=== PATIENT | male | born 1945 | race Caucasian/White ===

== ENCOUNTER 2017-01-09 15:45 | Emergency (ER) | payer MEDICARE ==
--- NOTE | ~2017-01-09 | CT4 ---
[facility] A Service of [facility] & [facility] / [facility] RADIOLOGY TEXT RESULTS PATIENT: APOLLO VIRAMONTES LOCATION: [facility] : [birth year] UNIT #: [id number] AGE: [address]: Phil Guillen MD SEX: M ORDER DR: [id number] [facility] [address] [place], [place] [address] [id number] P MR#: [id number] Acc #: [id number] NAME: APOLLO VIRAMONTES : 1945 SEX: M STUDY DATE/TIME: 01/09/2017 17:31 UNIT: [facility] ROOM: STUDY DESCRIPTION: CT Abd and Pelv Wo Cont Attending Physician: Phil Guillen M.D. Ordering Physician: Phil Guillen M.D. Primary Care Physician: [facility], [facility], [facility]. MEDICAL IMAGING REPORT This report is preliminary unless electronic signature is present EXAM CT abdomen and pelvis 01/09 INDICATIONS Abdominal pain with nausea and vomiting that started today. TECHNIQUE Axial images were obtained through the abdomen and pelvis without contrast. Multiplanar reformats were obtained. This CT exam was performed with one or more of the following radiation dose reduction techniques: automatic exposure control, adjustment of mA and/or kV according to patient size, and iterative reconstruction. COMPARISON STUDIES Comparison made with 01/23/2016. FINDINGS ABDOMEN: The findings have already been discussed directly with Dr. Guillen in emergency room prior to this dictation. The lung bases are clear. The patient has a infrarenal abdominal aortic aneurysm. It now measures up to 5.7 cm where it was previously 5.2 cm. It is now ruptured and is surrounded by blood products. The aneurysm covers a craniocaudal length of about 8.7 cm. Fatty infiltration of the liver is present. There is a cyst in the lower pole of the right kidney. There is also a cyst in the lateral cortex of the left kidney. No renal or ureteral stones are seen. There is no hydronephrosis. The unopacified GI tract is grossly normal. PELVIS: The left common iliac artery is dilated to about 1.6 cm. There is diffuse atherosclerotic disease. The urinary bladder is normal. Trace amount of dependent free fluid is present. The unopacified GI tract is grossly normal. Patient is status post ORIF of the left hip. There is STS. [facility] A Service of [facility] RADIOLOGY TEXT RESULTS PATIENT: PAOLLO VIRAMONTES LOCATION: 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 IMPRESSION 1. Ruptured or leaking infrarenal abdominal aortic aneurysm. It is surrounded by hemorrhage. It now measures up to 5.7 cm where it previously measured about 5.2 cm in 2016. 2. 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 3. Extensive atherosclerotic disease. 4. Fatty liver. 5. Trace dependent free fluid in the pelvis. STAT * RESULT Dictated by... Sivakumar Osorio Jr., M.D. THIS IS AN ELECTRONICALLY VERIFIED REPORT Sivakumar Osorio Jr., M.D. at 01/09/2017 10:33 PM RAVINDRA/martin TD: 01/09/2017 18:08 JOB #: [id number] MEDICAL IMAGING REPORT Page 1 of 1 COPY
--- NOTE | ~2017-01-09 | CT14 ---
[facility] A Service of [facility] & [facility] RADIOLOGY TEXT RESULTS PATIENT: APOLLO VIRAMONTES LOCATION: [facility] : 47 UNIT #: [id number] AGE: [address]: Phil Guillen MD SEX: M ORDER DR: [id number] [facility] [address] [place], [place] [address] [id number] E MR#: [id number] Acc #: [id number] NAME: APOLLO VIRAMONTES. : 1945 SEX: M STUDY DATE/TIME: 01/09/2017 18:31 UNIT: [facility] ROOM: STUDY DESCRIPTION: CT Angio Abdomen and Pelvis Attending Physician: Phil Guillen M.D. Ordering Physician: Phil Guillen M.D. Primary Care Physician: [facility], [facility]. MEDICAL IMAGING REPORT This report is preliminary unless electronic signature is present EXAM CT angiogram abdomen and pelvis, 01/09 INDICATIONS Abdominal pain with nausea and vomiting today. Abnormal CT today showing a ruptured aortic aneurysm. TECHNIQUE Axial images were obtained through the abdomen and pelvis following IV contrast administration. 3-D reformats were obtained. Comparison made to prior study today as well as with 01/23/16. This CT exam was performed with one or more of the following radiation dose reduction techniques: Automatic exposure control, adjustment of mA and/or kV according to patient size, and iterative reconstruction. FINDINGS Again seen is extensive atherosclerotic disease. There is an infrarenal abdominal aortic aneurysm, as seen on the earlier exam today. There is hematoma surrounding it, compatible with rupture. No definite extravasated contrast is seen. Aneurysm measures up to 6.0 x 5.8 cm on the axial images. Craniocaudal length on the coronal reformats is approximately 10.3 cm. The aneurysm extends to the aortic bifurcation. 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 Slightly distal to this, the common iliac artery measures 1.5 cm, as well. 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 The right internal and external iliac arteries reconstitute at their origins. The NIKI is occluded at its origin but reconstitutes shortly thereafter. There is plaque at the origin of the SMA and celiac, but these vessels appear widely patent. There are single bilateral renal arteries. The rest of the exam is not significantly changed from prior today. IMPRESSION 1. Ruptured or leaking infrarenal abdominal aortic aneurysm, as seen [facility] & [facility] RADIOLOGY TEXT RESULTS PATIENT: APOLLO VIRAMONTES LOCATION: [facility] : 47 UNIT #: [id number] AGE: [address]: Phil Guillen MD SEX: M ORDER DR: earlier this evening. No extraluminal contrast is seen. It contains extensive mural thrombus with calcification. It measures up to 6.0 x 5.8 cm on the axial images and it covers a length of about 10.3 cm. Also noted is an occluded common iliac artery on the right side. The left common iliac artery is ectatic at about 1.5 cm diameter. The internal and external iliac arteries on the right side reconstitute at their origins. Also noted is an occluded NIKI at the origin, which reconstitutes shortly thereafter. STAT * RESULT Dictated by... Sivakumar Osorio Jr., M.D. THIS IS AN ELECTRONICALLY VERIFIED REPORT Sivakumar Osorio Jr., M.D. at 01/09/2017 10:34 PM RAVINDRA/thelma TD: 01/09/2017 20:00 JOB #: [id number] MEDICAL IMAGING REPORT Page 1 of 1 COPY
[~2017-01-09 15:45] MED LIST: ACIPHEX20 MG PO; ADVAIR 2501 DISK W/D PO; ALBUTEROL 0.5ML NEB; ALBUTEROL17 GM INH; ASPIRIN PO; ASPIRIN81 MG PO; AZITHROMYCIN250 MG PO; FLONASE16 GM; FOLIC ACID PO; KEFLEX500 M1 PO; LIPITOR PO; LIPITOR20 MG PO; LOPRESSOR PO; METOPROLOL TAR25 MG PO; MYLANTA GAS80 MG PO; NEXIUM PO; NITROGYLCERIN SUBLINGUAL; OMEPRAZOLE40 M1 PO; OTC DECONGESTANT PO; PANTOPRAZOLE SO40 MG PO; PREDNISONE PO; ROBITUSSIN100 MG/51 PO; SYMBICORT INH; THIAMINE HCL100 MG PO; TUSSIONEX PENN473 ML PO; ULTRAM PO; VOLTAREN75 MG PO
[2017-01-09] MEDS ORDERED: PATIENT'S PHARMACY (16:54)
[2017-01-09 17:02] LABS: BASOPHIL% 0.3 % (0-2.5); EOSINOPHIL% 0.1 % (0.0-7.0); HEMATOCRIT 34.4 % (38.0-50.0); HEMOGLOBIN 11.5 gm/dL (13.0-16.0); MEAN CELL VOLUME 108.2 FL (83-96); MEAN CORPUSCULAR HEMOGLOBIN 36.1 PG (28-34); MEAN CORPUSCULAR HGB CONC 33.4 g/dL (30-36); MONOCYTE# 0.7 X10e3 (0-1.0); MONOCYTE% 7.1 % (3.0-12.0); NEUTROPHIL# 8.7 X10e3 (1.5-7.1); NEUTROPHIL% 82.5 % (40-75); PLATELET COUNT 140 X10e3 (140-420); RED BLOOD COUNT 3.18 X10e (3.90-5.60); RED CELL DISTRIBUTION WIDTH 14.5 % (11.0-15.5); WHITE BLOOD COUNT 10.5 X10e3 (4.0-10.5)
[2017-01-09 17:03] LABS: DIFF IND YES
[2017-01-09] MEDS ORDERED: SYMBICORT 16010.2 GM INH (17:05)
[2017-01-09] MEDS ORDERED: ASPIRIN81 M2 PO (17:05)
[2017-01-09] MEDS ORDERED: FLONASE ALLERG9.9 ML (17:05)
[2017-01-09] MEDS ORDERED: PROTONIX PO (17:05)
[2017-01-09] MEDS ORDERED: PROAIR HFA8.5 GM INH (17:06)
[2017-01-09] MEDS ORDERED: LICE COMPLETE1 EACH TOP (17:06)
[2017-01-09] MEDS ORDERED: LIPITOR20 MG PO (17:06)
[2017-01-09 17:23] LABS: ALBUMIN SERUM 2.8 g/dL (3.5-5.0); BILIRUBIN, DIRECT 0.2 mg/dL (0.0-0.2); BILIRUBIN,INDIRECT 0.6 mg/dL (0.0-0.9); BILIRUBIN,TOTAL 0.8 mg/dL (0.2-2.0); BUN/CREATININE RATIO 8.75; CALCIUM SERUM 8.3 mg/dL (8.4-10.2); CREATININE SERUM 0.8 mg/dL (0.6-1.4); GLOM FILT RATE Estimated 90.5 mL/min (>60); PLATELET ESTIMATE NORMAL (NORMAL); POTASSIUM 3.6 mmol/L (3.5-5.1); PROTEIN TOTAL SERUM 5.8 g/dL (6.0-8.3)
[2017-01-09 18:08] LABS: URINE SOURCE CLEAN CATCH
[2017-01-09 18:17] LABS: URINE APPEARANCE TURBID; URINE BILIRUBIN NEG (NEG); URINE BLOOD NEG (NEG); URINE COLOR DK YELLOW; URINE GLUCOSE NEG (NEG); URINE KETONE 2+ (NEG); URINE LEUKOCYTE ESTERASE TRACE (NEG); URINE NITRATE NEG (NEG); URINE PH 5.5 (5-8); URINE PROTEIN TRACE (NEG); URINE SPECIFIC GRAVITY 1.021 (1.003-1.035)
[2017-01-09 18:30] LABS: CULTURE INDICATED? NO; URINE BACTERIA AUWI NEG (NEGATIVE); URINE SQUAMOUS EPITHELIAL CELL OCC /[HPF]; UWBCS1 AUWI 0-2 (0-5)
== END 2017-01-09 19:08 ==
LOC: CED 15:45
PROVIDERS: Emergency Medicine
DX: I71.3 Abdominal aortic aneurysm, ruptured (principal); F10.20 Alcohol dependence, uncomplicated; F17.200 Nicotine dependence, unspecified, uncomplicated; Z88.2 Allergy status to sulfonamides
CPT/HCPCS: 74174; 74176; 80048; 80076; 81003; 82150; 83690; 85025; 96374; 96375; 99291; G0480; J1170; J2405; Q9967